=== PATIENT | female | born 1940 | race Caucasian/White ===

== ENCOUNTER 2016-12-27 10:18 | Day surgery (SDC) | payer MEDICARE ==
[2016-12-22 14:02] VITALS: BP 147/67
[~2016-12-27] VITALS: Ht 154.9 cm; Wt 65.9 kg
[~2016-12-27 10:18] MED LIST: ASPI-496 PO; ATOR40TA78 PO; CARV12.543 PO; DORZ10DR21 EACHEYE; ISOS60TA36 PO; LISI-167 PO; PYRI60TA PO; RANO500T2 PO
[2016-12-27] MEDS ORDERED: SODIUM CHLORIDE 0.9% 1,000 ML IV ONE (10:47)
[2016-12-27] MEDS ORDERED: VERAPAMIL 2.5 MG/ML, 2ML ONE ×2 (12:04→12:59)
[2016-12-27] MEDS ORDERED: LIDOCAINE 2%, 20ML ONE (12:04)
[2016-12-27] MEDS ORDERED: HEPARIN 1,000 UNITS/ML, 10ML ONE (12:04)
[2016-12-27] MEDS ORDERED: NITROGLYCERIN 5 MG/ML, 10ML ONE (12:04)
[2016-12-27] MEDS ORDERED: FENTANYL PF 100 MCG/2ML ONE (12:04)
[2016-12-27] MEDS ORDERED: TICAGRELOR 90 MG TABLET ONE (12:04)
[2016-12-27] MEDS ORDERED: BIVALIRUDIN 250 MG ONE (12:04)
[2016-12-27] MEDS ORDERED: MIDAZOLAM 1 MG/ML, 5ML ONE (12:04)
== END 2016-12-27 16:27 | disposition home or self-care (01) ==
LOC: CACL 10:18
PROVIDERS: ATTEND Internal Medicine Cardiovascular Disease
DX: I25.119 Atherosclerotic heart disease of native coronary artery with unspecified angina pectoris (principal); I10 Essential (primary) hypertension; E78.2 Mixed hyperlipidemia; Z88.1 Allergy status to other antibiotic agents
CPT/HCPCS: 93458; 99156; 99157; C1760; C1769; C1894; J1644; J2250; J3010; J3490; Q9967; J0583